=== PATIENT | female | born 1995 | race Caucasian/White ===

== ENCOUNTER 2017-01-22 18:35 | Emergency (ER) | payer MEDICAID ==
[~2017-01-22] VITALS: Ht 167.6 cm; Wt 80.7 kg
[2017-01-22 18:41] VITALS: BP 124/78
[2017-01-22] MEDS ORDERED: KETOROLAC 30 MG/1 ML IM ONE (19:00)
[2017-01-22] MEDS ORDERED: DIAZEPAM 5 MG TABLET PO ONE (19:00)
[2017-01-22] MEDS ORDERED: OXYcodone/APAP 5/325MG TABLET PO ONE (19:00)
[2017-01-22] MEDS ORDERED: DIAZEPAM 5 MG TABLET ONE (19:24)
[2017-01-22] MEDS ORDERED: OXYcodone/APAP 5/325MG TABLET ONE (19:25)
[2017-01-22] MEDS ORDERED: KETOROLAC 30 MG/1 ML ONE (19:25)
== END 2017-01-22 19:43 | disposition home or self-care (01) ==
LOC: ED 19:30
DX: S39.012A Strain of muscle, fascia and tendon of lower back, initial encounter (principal); J45.909 Unspecified asthma, uncomplicated; F17.200 Nicotine dependence, unspecified, uncomplicated; F12.10 Cannabis abuse, uncomplicated; X50.1XXA Overexertion from prolonged static or awkward postures, initial encounter; X50.9XXA Other and unspecified overexertion or strenuous movements or postures, initial encounter; Y93.89 Activity, other specified; Y99.8 Other external cause status; Y92.89 Other specified places as the place of occurrence of the external cause
CPT/HCPCS: 99283